=== PATIENT | female | born 1960 | race Caucasian/White ===

== ENCOUNTER → 2020-11-30 | Outpatient (CLI) | payer OTHER ==
[~2020-11-30] MED LIST: AMOXICILLIN500 MG PO; BACTRIM 400-801 EACH PO; PREDNISONE50 MG PO; Voltaren Gel 1% TOP
== END ==
LOC: RAD 11:55
DX: M54.2 Cervicalgia (principal); M47.812 Spondylosis without myelopathy or radiculopathy, cervical region
CPT/HCPCS: 72050

== ENCOUNTER 2020-12-06 09:58 | Emergency (ER) | payer OTHER ==
[~2020-12-06 09:58] MED LIST changes: -PREDNISONE50 MG PO; -Voltaren Gel 1% TOP
[2020-12-06] MEDS ORDERED: Voltaren Gel 1% TOP (13:34)
[2020-12-06] MEDS ORDERED: PREDNISONE50 MG PO (13:34)
== END 2020-12-06 13:41 | disposition home or self-care (01) ==
LOC: ER1 09:58
DX: M54.2 Cervicalgia (principal); E78.5 Hyperlipidemia, unspecified; J44.9 Chronic obstructive pulmonary disease, unspecified; F17.210 Nicotine dependence, cigarettes, uncomplicated; Z88.1 Allergy status to other antibiotic agents
CPT/HCPCS: 72125; 99283

== ENCOUNTER 2021-04-22 10:43 | Emergency (ER) | payer OTHER ==
[~2021-04-22 10:43] MED LIST changes: +PREDNISONE50 MG PO; +Voltaren Gel 1% TOP
[2021-04-22 11:35] LABS: HEMOGLOBIN 15.6 gm/dl (12.3-15.3); RED BLOOD COUNT 4.79 M/UL (4.00-5.10); WHITE BLOOD COUNT 7.2 K/UL (4.5-11.0)
[2021-04-22 12:02] LABS: BUN/CREATININE RATIO 17 (0-10)
== END 2021-04-22 13:26 | disposition home or self-care (01) ==
LOC: ER1 10:43
PROVIDERS: Emergency Medicine
DX: R30.0 Dysuria (principal); H61.22 Impacted cerumen, left ear; R39.198 Other difficulties with micturition
CPT/HCPCS: 80053; 81001; 85025; 99283